=== PATIENT | female | born 1940 | race Caucasian/White ===

== ENCOUNTER 2017-01-28 20:07 | Emergency (ER) | payer MEDICARE, BC ==
[~2017-01-28 20:07] MED LIST: ALEVE220 MG PO; AMARYL2 PO; ASA5GR PO; ASAB PO; AUG250 PO; AVAP150 PO; CENTRUM TAB1 TAB PO; COLCH6 PO; FORTAMET500 MG PO; PRILOSEC40 MG PO; X5 PO; ZOCOR40 PO
== END 2017-01-28 21:30 | disposition home or self-care (01) ==
LOC: ER 20:07
DX: S49.92XA Unspecified injury of left shoulder and upper arm, initial encounter (principal); I10 Essential (primary) hypertension; F41.9 Anxiety disorder, unspecified; E11.9 Type 2 diabetes mellitus without complications; Z88.8 Allergy status to other drugs, medicaments and biological substances; Z79.82 Long term (current) use of aspirin; Z79.899 Other long term (current) drug therapy; W19.XXXA Unspecified fall, initial encounter
CPT/HCPCS: 73030-LT; 73060-LT; 99284